=== PATIENT | female | born 1990 | race American Indian/Alaskan Native ===

== ENCOUNTER 2018-04-04 11:20 | Emergency (ER) | payer SELFPAY ==
[2018-04-04 11:59] VITALS: BP 95/67
== END 2018-04-04 12:00 | disposition left against medical advice (07) ==
LOC: ED 11:20
DX: D57.1 Sickle-cell disease without crisis (principal); Z53.21 Procedure and treatment not carried out due to patient leaving prior to being seen by health care provider
CPT/HCPCS: 93005; 93010